=== PATIENT | female | born 1965 | race Caucasian/White ===

== ENCOUNTER → 2021-04-17 | Day surgery (SDC) | payer OTHER ==
[~2021-04-17] MED LIST: ESCITALOPRAM OX10 MG PO; LISINOPRIL40 MG PO; PROTONIX 40 MG40 M1 PO; ZYRTEC10 MG PO
== END | disposition home or self-care (01) ==
LOC: OR 07:05
DX: K31.9 Disease of stomach and duodenum, unspecified (principal); K29.80 Duodenitis without bleeding; K21.00 Gastro-esophageal reflux disease with esophagitis, without bleeding; K22.10 Ulcer of esophagus without bleeding; K59.09 Other constipation; I10 Essential (primary) hypertension; Z88.0 Allergy status to penicillin; Z88.8 Allergy status to other drugs, medicaments and biological substances; Z98.51 Tubal ligation status; Z96.651 Presence of right artificial knee joint; F41.8 Other specified anxiety disorders; E66.01 Morbid (severe) obesity due to excess calories; J32.9 Chronic sinusitis, unspecified; Z68.41 Body mass index [BMI] 40.0-44.9, adult; R15.9 Full incontinence of feces; Z20.822 Contact with and (suspected) exposure to COVID-19; K44.9 Diaphragmatic hernia without obstruction or gangrene; K22.2 Esophageal obstruction
CPT/HCPCS: J2704; J3010; J7040

== ENCOUNTER → 2022-02-06 | Outpatient (CLI) | payer OTHER | LOC: HEART 5 13:00 | DX: R00.2 Palpitations (principal); R06.02 Shortness of breath ==